=== PATIENT | female | born 1945 | race Caucasian/White ===

== ENCOUNTER 2020-12-02 13:14 | Outpatient (CLI) | payer MEDICARE | END 2020-12-02 13:15 | disposition home or self-care (01) | LOC: RAD 13:14 | PROVIDERS: ATTEND Internal Medicine Hematology & Oncology | DX: C20 Malignant neoplasm of rectum (principal); C16.8 Malignant neoplasm of overlapping sites of stomach | CPT/HCPCS: 36005; 36598; J1642 ==